=== PATIENT | male | born 1935 | race African-American/Black ===

== ENCOUNTER 2018-11-02 09:10 | Emergency (ER) | payer MEDICARE ==
[~2018-11-02] VITALS: Ht 177.8 cm; Wt 102.0 kg
[2018-11-02] MEDS ORDERED: ALBUTEROL (0.083%) 2.5MG/3ML NEB HHN STA (10:19)
[2018-11-02] MEDS ORDERED: BENZONATATE 100MG CAPSULE PO ONE (10:30)
[2018-11-02 12:25] VITALS: BP 127/76
== END 2018-11-02 12:27 | disposition home or self-care (01) ==
LOC: ER 09:10
DX: R05 Cough (principal); J02.9 Acute pharyngitis, unspecified; E11.9 Type 2 diabetes mellitus without complications; E78.00 Pure hypercholesterolemia, unspecified; I10 Essential (primary) hypertension; Z90.49 Acquired absence of other specified parts of digestive tract
CPT/HCPCS: 71045; 94640; 99283; J7611

== ENCOUNTER 2019-08-17 07:39 | Inpatient (IN) | payer MEDICARE ==
[~2019-08-17] VITALS: Ht 177.8 cm; Wt 101.7 kg
[2019-08-17] MEDS ORDERED: ASPIRIN 325MG EC TABLET PO ONE (08:15)
[2019-08-17 08:41] LABS: BASOPHILS % 0.5 % (0.0-2.0); EOSINOPHILS % 3.2 % (0.0-5.0); HEMATOCRIT. 43.5 % (42.0-52.0); HEMOGLOBIN. 14.6 g/dL (14.0-18.0); LYMPHOCYTES % 21.1 % (20.0-50.0); MEAN CORPUSCULAR HEMOGLOBIN 30.4 pg (28.0-32.0); MEAN CORPUSCULAR VOLUME 90.9 fL (80.0-94.0); MEAN PLATELET VOLUME 7.6 fl (7.4-10.4); MONOCYTES % 8.9 % (2.0-8.0); NEUTROPHILS % 66.3 % (40.0-76.0); PLATELET 231 x1000/uL (130-400); RED BLOOD CELL COUNT 4.79 mill/uL (4.7-6.1); RED CELL DISTRIBUTION WIDTH 13.6 % (11.6-14.6)
[2019-08-17 08:45] LABS: CHLORIDE 106 mEq/L (98-107)
[2019-08-17 12:00] VITALS: BP 143/77
[2019-08-17 12:37] VITALS: BP 143/77
[2019-08-17] MEDS ORDERED: SIMV40TA5 PO (12:45)
[2019-08-17] MEDS ORDERED: ACETAMINOPHEN 325MG TABLET PO PRN (14:00)
[2019-08-17] MEDS ORDERED: ONDANSETRON HCL 4MG/2ML INJ IV PRN (14:00)
[2019-08-17] MEDS: ENOXAPARIN 40MG/0.4ML SYR SUBCUT SCH (14:38)
[2019-08-17 16:00] VITALS: BP 123/69
[2019-08-17] MEDS: METFORMIN HCL 500MG TABLET PO SCH (17:35)
[2019-08-17 20:00] VITALS: BP 122/65
[2019-08-17] MEDS: METOPROLOL TARTRATE 25MG TABLET PO SCH (22:00)
[2019-08-18] VITALS (7 sets, daily range): BP systolic 100–138; BP diastolic 60–75
[2019-08-18] MEDS: METFORMIN HCL 500MG TABLET PO SCH ×2 (06:46→17:54)
[2019-08-18 06:48] LABS: BASOPHILS % 0.3 % (0.0-2.0); EOSINOPHILS % 3.8 % (0.0-5.0); HEMATOCRIT. 40.8 % (42.0-52.0); HEMOGLOBIN. 13.6 g/dL (14.0-18.0); LYMPHOCYTES % 27.7 % (20.0-50.0); MEAN CORPUSCULAR HEMOGLOBIN 30.2 pg (28.0-32.0); MEAN CORPUSCULAR VOLUME 90.6 fL (80.0-94.0); MEAN PLATELET VOLUME 7.7 fl (7.4-10.4); MONOCYTES % 10.6 % (2.0-8.0); NEUTROPHILS % 57.6 % (40.0-76.0); PLATELET 201 x1000/uL (130-400); RED BLOOD CELL COUNT 4.51 mill/uL (4.7-6.1); RED CELL DISTRIBUTION WIDTH 13.7 % (11.6-14.6)
[2019-08-18 07:48] LABS: CHLORIDE 106 mEq/L (98-107)
[2019-08-18] MEDS ORDERED: ASPIRIN 81MG TABLET PO SCH (09:00)
[2019-08-18] MEDS: METOPROLOL TARTRATE 25MG TABLET PO SCH (09:00)
[2019-08-18] MEDS: ENOXAPARIN 40MG/0.4ML SYR SUBCUT SCH (09:19)
[2019-08-18] MEDS ORDERED: PANTOPRAZOLE 40MG DR TABLET PO SCH (11:00)
[2019-08-18] MEDS ORDERED: METOPROLOL TARTRATE 25MG TABLET PO SCH (21:00)
[2019-08-18] MEDS ORDERED: ATORVASTATIN CALCIUM 20MG TABLET PO SCH (21:00)
== END 2019-08-18 19:54 | disposition home or self-care (01) | DRG 206 ==
LOC: ER 07:52 → 5WST 09:42 → EDBEDREQ 10:34 → EDBEDREQTM 10:34 → ENRESERV 11:50
PROVIDERS: ADMIT Internal Medicine; ATTEND Internal Medicine
DX: M94.0 Chondrocostal junction syndrome [Tietze] (principal); I10 Essential (primary) hypertension; E78.5 Hyperlipidemia, unspecified; E66.9 Obesity, unspecified; E11.9 Type 2 diabetes mellitus without complications; R00.1 Bradycardia, unspecified; M19.90 Unspecified osteoarthritis, unspecified site; Z90.49 Acquired absence of other specified parts of digestive tract; Z71.3 Dietary counseling and surveillance; Z68.32 Body mass index [BMI] 32.0-32.9, adult
CPT/HCPCS: 36415; 71045; 80048; 80061; 83880; 84443; 84484; 93005; 93306; 97161; 99285; J1650

== ENCOUNTER 2022-01-30 20:33 | Emergency (ER) | payer MEDICARE ==
[~2022-01-30] VITALS: Ht 182.9 cm; Wt 91.0 kg
[~2022-01-30 20:33] MED LIST: SIMV-46 PO
[2022-01-30 21:57] LABS: BASOPHILS % 0.7 % (0.0-2.0); EOSINOPHILS % 2.3 % (0.0-5.0); HEMATOCRIT. 42.8 % (42.0-52.0); HEMOGLOBIN. 14.6 g/dL (14.0-18.0); LYMPHOCYTES % 20.3 % (20.0-50.0); MEAN CORPUSCULAR HEMOGLOBIN 30.6 pg (28.0-32.0); MEAN CORPUSCULAR VOLUME 89.5 fL (80.0-94.0); MEAN PLATELET VOLUME 7.8 fl (7.4-10.4); MONOCYTES % 9.8 % (2.0-8.0); NEUTROPHILS % 66.9 % (40.0-76.0); PLATELET 202 x1000/uL (130-400); RED BLOOD CELL COUNT 4.78 mill/uL (4.7-6.1); RED CELL DISTRIBUTION WIDTH 13.9 % (11.6-14.6)
[2022-01-30 22:03] LABS: CHLORIDE 108 mEq/L (98-107)
[2022-01-30 23:44] VITALS: BP 155/79
== END 2022-01-31 01:08 | disposition home or self-care (01) ==
LOC: ER 20:33
DX: R07.89 Other chest pain (principal); E11.9 Type 2 diabetes mellitus without complications; I10 Essential (primary) hypertension; Z90.49 Acquired absence of other specified parts of digestive tract
CPT/HCPCS: 36415; 71045; 80053; 82270; 83880; 84484; 85025; 93005; 99285

== ENCOUNTER 2022-10-18 15:49 | Inpatient (IN) | payer MEDICARE ==
[~2022-10-18] VITALS: Ht 185.4 cm; Wt 81.2 kg
[2022-10-18] MEDS ORDERED: MAGNESIUM/ALUMINUM HYDROXIDE/SIMETHICONE 30ML UDC PO STA (16:11)
[2022-10-18] MEDS ORDERED: MORPHINE SULFATE 4 MG/ML CPJ (NOT FOR IM USE) IV STA (16:11)
[2022-10-18] MEDS ORDERED: PANTOPRAZOLE SODIUM 40 MG/VIAL IV STA (16:11)
[2022-10-18] MEDS ORDERED: SODIUM CHLORIDE 0.9% 1,000 ML IV ONE (16:15)
[2022-10-18 16:46] LABS: BASOPHILS % 0.3 % (0.0-2.0); EOSINOPHILS % 1.7 % (0.0-5.0); HEMATOCRIT. 42.5 % (42.0-52.0); HEMOGLOBIN. 14.5 g/dL (14.0-18.0); LYMPHOCYTES % 12.8 % (20.0-50.0); MEAN CORPUSCULAR VOLUME 91.1 fL (80.0-94.0); MEAN PLATELET VOLUME 8.1 fl (7.4-10.4); MONOCYTES % 8.8 % (2.0-8.0); NEUTROPHILS % 76.4 % (40.0-76.0); PLATELET 190 x1000/uL (130-400); RED BLOOD CELL COUNT 4.66 mill/uL (4.7-6.1); RED CELL DISTRIBUTION WIDTH 13.3 % (11.6-14.6)
[2022-10-18 16:54] LABS: CHLORIDE 106 mEq/L (98-107)
[2022-10-18] MEDS ORDERED: MORPHINE SULFATE 4 MG/ML CPJ (NOT FOR IM USE) IV SCH (21:45)
[2022-10-18] MEDS ORDERED: MAGNESIUM/ALUMINUM HYDROXIDE/SIMETHICONE 30ML UDC PO SCH (21:45)
[2022-10-18] MEDS ORDERED: PANTOPRAZOLE SODIUM 40 MG/VIAL IV SCH (21:45)
[2022-10-18] MEDS ORDERED: PROT40 MT (22:47)
[2022-10-18] MEDS ORDERED: TOPUD MT (22:47)
[2022-10-18] MEDS ORDERED: IOHEXOL-300 100 ML BOTTLE ONE (23:44)
[2022-10-18 23:51] LABS: CLARITY URINE CLEAR (CLEAR); COLOR URINE DARK YELLOW (YELLOW); KETONES URINE TRACE (NEGATIVE); LEUKOCYTE ESTERASE URINE NEGATIVE (NEGATIVE); NITRITE URINE NEGATIVE (NEGATIVE); OCCULT BLOOD URINE NEGATIVE (NEGATIVE); PH URINE 5.5 (4.5-8.0); PROTEIN URINE TRACE (NEGATIVE); SPECIFIC GRAVITY URINE 1.027 (1.005-1.030); UROBILINOGEN URINE 0.2 E.U./dL (0.2-1.0)
[2022-10-19] MEDS ORDERED: ONDANSETRON HCL 4MG/2ML INJ IV PRN (09:15)
[2022-10-19] MEDS ORDERED: ACETAMINOPHEN 325MG TABLET PO PRN (09:15)
[2022-10-20] MEDS: PANTOPRAZOLE 40MG DR TABLET PO SCH (06:30)
[2022-10-20 16:36] LABS: BASOPHILS % 0.3 % (0.0-2.0); EOSINOPHILS % 3.4 % (0.0-5.0); HEMATOCRIT. 39.8 % (42.0-52.0); HEMOGLOBIN. 13.6 g/dL (14.0-18.0); LYMPHOCYTES % 14.8 % (20.0-50.0); MEAN CORPUSCULAR HEMOGLOBIN 30.7 pg (28.0-32.0); MONOCYTES % 9.2 % (2.0-8.0); NEUTROPHILS % 72.3 % (40.0-76.0); PLATELET 188 x1000/uL (130-400); RED BLOOD CELL COUNT 4.42 mill/uL (4.7-6.1); RED CELL DISTRIBUTION WIDTH 13.1 % (11.6-14.6)
[2022-10-20 16:40] VITALS: BP 163/69
[2022-10-20 18:06] LABS: CHLORIDE 105 mEq/L (98-107)
[2022-10-20 18:11] LABS: TOTAL IRON BINDING CAPACITY 345 ug/dL (250-450)
[2022-10-20 18:29] VITALS: BP 157/68
[2022-10-20] MEDS ORDERED: NIFEDIPINE 10MG CAPSULE PO NR (19:30)
[2022-10-20 20:00] VITALS: BP 116/86
[2022-10-20] MEDS: TAMSULOSIN HCL 0.4MG SR CAPSULE PO SCH (21:58)
[2022-10-20] MEDS: NIFEDIPINE 10MG CAPSULE PO SCH (21:59)
[2022-10-21] VITALS: BP 109/49
[2022-10-21 04:00] VITALS: BP 107/56
[2022-10-21] MEDS: PANTOPRAZOLE 40MG DR TABLET PO SCH (06:34)
[2022-10-21] MEDS: NIFEDIPINE 10MG CAPSULE PO SCH (06:34)
[2022-10-21 08:00] VITALS: BP 112/51
[2022-10-21] MEDS: TAMSULOSIN HCL 0.4MG SR CAPSULE PO SCH (09:02)
[2022-10-21 12:00] VITALS: BP 126/64
[2022-10-21 13:00] VITALS: BP 126/64
== END 2022-10-21 14:00 | disposition home or self-care (01) | DRG 379 ==
LOC: ER 15:53 → MICUSO 10-19 05:12 → 6EST 10-20 16:43
PROVIDERS: ADMIT Internal Medicine; ATTEND Internal Medicine
DX: K92.2 Gastrointestinal hemorrhage, unspecified (principal); K52.9 Noninfective gastroenteritis and colitis, unspecified; E11.9 Type 2 diabetes mellitus without complications; I10 Essential (primary) hypertension; H26.9 Unspecified cataract; Z79.899 Other long term (current) drug therapy; Z87.11 Personal history of peptic ulcer disease
CPT/HCPCS: 36415; 74177; 80048; 80053; 81003; 82728; 82962; 83540; 83550; 83605; 85025; 85044; 86850; 86900; 99285; C9113; J2270; J7030; Q9967

== ENCOUNTER 2025-09-25 19:57 | Emergency (ER) | payer SELFPAY ==
[~2025-09-25] VITALS: Ht 180.3 cm; Wt 91.0 kg
[~2025-09-25 19:57] MED LIST changes: +PROT40 MT; +TOPUD MT
[2025-09-25 20:00] VITALS: O2SAT 99
[2025-09-25 23:15] VITALS: BP 117/72; PULSE 72; RESP 15; TEMP 36.6; O2SAT 98
== END 2025-09-25 23:19 | disposition home or self-care (01) ==
LOC: ER 19:57
DX: T16.1XXA Foreign body in right ear, initial encounter (principal); I10 Essential (primary) hypertension; E78.00 Pure hypercholesterolemia, unspecified; Z90.49 Acquired absence of other specified parts of digestive tract; Z79.899 Other long term (current) drug therapy; W44.8XXA Other foreign body entering into or through a natural orifice, initial encounter; Y93.89 Activity, other specified; Y92.89 Other specified places as the place of occurrence of the external cause; Y99.8 Other external cause status
CPT/HCPCS: 69200; 99284